=== PATIENT | female | born 1950 | race Caucasian/White ===

== ENCOUNTER → 2017-11-16 | Outpatient (CLI) | payer MEDICARE, OTHER ==
[~2017-11-16] MED LIST: ALBI30PE INJ; ALBI30PE SC; AMLO10TA2 PO; AMLO2.5T PO; ATEN25TA PO; ATEN50TA41 PO; ATOR-2 PO; ATOR40TA PO; DAPA1TAB3 PO; DAPA1TAB5 PO; FENO160T PO; FENO43CA3 PO; FENT1PAT75 TD; INSU100I28 SQ-INSULIN; INSU100V13 SC; LISI1TAB5 PO; LISI2.5T PO; OMEG1CAP2 PO; POLY17PO5 PO; TRAM50TA2 PO
[2017-11-16 12:18] LABS: MEAN CORPUSCULAR HEMOGLOBIN 27.2 pg (27.0-34.8); MEAN CORPUSCULAR HGB CONC 33.5 g/dL (32.4-35.8); MEAN CORPUSCULAR VOLUME 81.1 fL (80-100); MEAN PLATELET VOLUME 10.9 fL (7.4-10.4); PLATELET COUNT 313 x10^3/uL (130-400); RED BLOOD COUNT 4.73 x10^6/uL (3.82-5.3); RED CELL DISTRIBUTION WIDTH 13.5 % (9.6-15.2)
[2017-11-16 12:29] LABS: INTERNATIONAL NORMALIZED RATIO 1.04 (0.93-1.1); PROTHROMBIN TIME 10.7 Seconds (9.6-11.5)
[2017-11-16 12:30] LABS: ALANINE AMINOTRANSFERASE 37 U/L (12-78); ALBUMIN 3.6 g/dL (3.4-5.0); ANION GAP 9 mmol/L (5-15); CALCIUM 9.4 mg/dL (8.5-10.1); CHLORIDE 95 mmol/L (98-107); CREATININE 1.71 mg/dL (0.55-1.02)
[2017-11-16 12:32] LABS: ALKALINE PHOSPHATASE 21 U/L (45-117); BILIRUBIN,TOTAL 0.5 mg/dL (0.2-1.0); TOTAL PROTEIN 7.2 g/dL (6.4-8.2)
[2017-11-16 12:45] LABS: MICROSCOPIC NOT IND
[2017-11-16 12:53] LABS: CULTURE INDICATED? NO
[2017-11-16 12:55] LABS: BASOPHILS # (AUTO) 0.05 x10^3/uL (0-0.1); BASOPHILS % (AUTO) 0 % (0-1); EOSINOPHILS % (AUTO) 0 % (1-7); LYMPHOCYTES % (AUTO) 9 % (22-44); MD SCAN; MONOCYTES # (AUTO) 0.67 x10^3/uL (0.2-0.8); MONOCYTES % (AUTO) 4 % (2-9); NEUTROPHILS # (AUTO) 15.78 x10^3/uL (1.8-6.8); NEUTROPHILS % (AUTO) 87 % (42-75)
== END | disposition home or self-care (01) ==
LOC: STAR 10:33
PROVIDERS: ATTEND Orthopaedic Surgery Orthopaedic Surgery of the Spine
DX: Z01.818 Encounter for other preprocedural examination (principal); I10 Essential (primary) hypertension; E11.9 Type 2 diabetes mellitus without complications; M43.16 Spondylolisthesis, lumbar region; M48.061 Spinal stenosis, lumbar region without neurogenic claudication; I25.2 Old myocardial infarction; Z98.1 Arthrodesis status
CPT/HCPCS: 36415; 71046; 80053; 81003; 85025; 85610; 85730; 93005

== ENCOUNTER → 2017-11-16 | Outpatient (CLI) | payer MEDICARE, OTHER | END | disposition home or self-care (01) | LOC: CFH 08:09 → EDSTATUS 08:30 | DX: Z13.820 Encounter for screening for osteoporosis (principal); N95.9 Unspecified menopausal and perimenopausal disorder; E11.9 Type 2 diabetes mellitus without complications | CPT/HCPCS: 77080 ==

== ENCOUNTER → 2017-11-26 | Outpatient (CLI) | payer MEDICARE, OTHER | END | disposition home or self-care (01) | LOC: CVU 13:55 | PROVIDERS: ATTEND Internal Medicine | DX: I11.9 Hypertensive heart disease without heart failure (principal); I35.8 Other nonrheumatic aortic valve disorders; E11.9 Type 2 diabetes mellitus without complications; E78.5 Hyperlipidemia, unspecified; G51.0 Bell's palsy | CPT/HCPCS: 93306 ==

== ENCOUNTER 2017-12-10 07:30 | Inpatient (IN) | payer MEDICARE ==
[~2017-12-10] VITALS: Ht 154.9 cm; Wt 79.1 kg
[~2017-12-10 07:30] MED LIST changes: -ALBI30PE INJ; -ALBI30PE SC; +ALBI30PE3 INJ; +ALBI30PE3 SC; -AMLO10TA2 PO; +AMLO10TA6 PO; -AMLO2.5T PO; +AMLO2.5T3 PO; +ASPI-496 PO; +CHOL5000 PO; +FISH1CAP PO; +HYDR2TAB29 PO; +INSU100V13 INJ; +LIRA0.6P2 INJ; +METF500T17 PO
[2017-12-23] MEDS ORDERED: LACTATED RINGERS 1,000 ML IV SCH (06:06)
[2017-12-23 06:11] VITALS: BP 156/87
[2017-12-23] MEDS ORDERED: LIDOCAINE/PF 0.5% ,50ML ONE (06:52)
[2017-12-23] MEDS ORDERED: BUPIVACAINE 0.25% ONE (06:52)
[2017-12-23] MEDS ORDERED: THROMBIN 5,000 UNIT VIAL TP ONE (06:53)
[2017-12-23] MEDS ORDERED: EPINEPHRINE 1 MG/ML, 1ML ONE (06:53)
[2017-12-23] MEDS ORDERED: VANCOMYCIN 1,000 MG ONE (06:53)
[2017-12-23] MEDS ORDERED: MIDAZOLAM 1 MG/ML, 2ML ONE ×2 (07:33→12:10)
[2017-12-23] MEDS ORDERED: FENTANYL PF 100 MCG/2ML ONE ×2 (07:33→07:42)
[2017-12-23] MEDS ORDERED: REMIFENTANIL 1 MG ONE (07:45)
[2017-12-23] MEDS ORDERED: KETAMINE 50 MG/ML, 10ML ONE (07:45)
[2017-12-23] MEDS ORDERED: ONDANSETRON 2MG/ML, 2ML IVPush PRN (12:00)
[2017-12-23] MEDS ORDERED: FENTANYL PF 100 MCG/2ML IV PRN (12:00)
[2017-12-23] MEDS ORDERED: LABETALOL 5MG/ML, 20ML IV PRN (12:00)
[2017-12-23] MEDS ORDERED: OXYcodone 5 MG/5 ML ORAL.SOL UDC PO PRN (12:00)
[2017-12-23] MEDS ORDERED: MIDAZOLAM 1 MG/ML, 2ML IV PRN (12:00)
[2017-12-23] MEDS ORDERED: MEPERIDINE/PF 25MG/0.5ML IVPush PRN (12:00)
[2017-12-23] MEDS ORDERED: HYDROmorphone 2 MG/ML, 1ML ONE ×2 (12:10→15:36)
[2017-12-23] MEDS ORDERED: hydrALAzine 20 MG/ML, 1ML ONE (12:10)
[2017-12-23] MEDS: HYDROmorphone 1 MG/ML, 1ML IV PRN ×4 (12:12→12:35)
[2017-12-23] MEDS ORDERED: hydrALAzine 20 MG/ML, 1ML IV PRN (12:30)
[2017-12-23] MEDS ORDERED: DIPHENHYDRAMINE 50 MG/ML, 1ML IVPush PRN (14:00)
[2017-12-23] MEDS ORDERED: DIPHENHYDRAMINE 50 MG/ML, 1ML ONE (14:00)
[2017-12-23 14:06] VITALS: BP 143/52
[2017-12-23] MEDS: DIPHENHYDRAMINE 50 MG/ML, 1ML IVPush PRN (14:19)
[2017-12-23] MEDS ORDERED: MAGNESIUM HYDROXIDE 8%, 30ML UDC PO PRN (14:30)
[2017-12-23] MEDS ORDERED: BISACODYL 10 MG SUPP PR PRN (14:30)
[2017-12-23] MEDS ORDERED: PROMETHAZINE 25 MG/ML, 1ML IM PRN (14:30)
[2017-12-23] MEDS ORDERED: DIPHENHYDRAMINE 50 MG/ML, 1ML IM PRN (14:30)
[2017-12-23] MEDS ORDERED: HYDROmorphone 2 MG/ML, 1ML IM PRN (14:30)
[2017-12-23] MEDS ORDERED: ONDANSETRON 2MG/ML, 2ML IV PRN (14:30)
[2017-12-23] MEDS ORDERED: METOCLOPRAMIDE 5 MG/ML, 2ML ONE (15:39)
[2017-12-23] MEDS ORDERED: NEOSTIGMINE 1 MG/ML, 10ML ONE (15:39)
[2017-12-23] MEDS ORDERED: DEXAMETHASONE 4 MG/ML, 1ML ONE (15:39)
[2017-12-23] MEDS ORDERED: ROCURONIUM 10MG/ML,5ML ONE (15:39)
[2017-12-23] MEDS ORDERED: PROPOFOL 10 MG/ML, 50ML ONE (15:39)
[2017-12-23] MEDS ORDERED: GLYCOPYRROLATE 0.2MG/1ML, 5ML ONE (15:39)
[2017-12-23] MEDS ORDERED: PROPOFOL 10 MG/ML, 20ML ONE (15:39)
[2017-12-23] MEDS ORDERED: KETAMINE 10 MG/ML, 20ML ONE (15:39)
[2017-12-23] MEDS ORDERED: ONDANSETRON 2MG/ML, 2ML ONE (15:39)
[2017-12-23] MEDS ORDERED: CEFAZOLIN 1,000 MG ONE (15:39)
[2017-12-23] MEDS: CEFAZOLIN PMX 1GM/50ML 50 ML IVPB SCH ×2 (15:40→23:07)
[2017-12-23] MEDS: HYDROmorphone 1 MG/ML, 1ML IVPush PRN (15:40)
[2017-12-23] MEDS: NS + 20MEQ KCL 1,000 ML IV SCH (15:40)
[2017-12-23] MEDS ORDERED: INSULIN LISPRO 100 UNITS/ML, PEN SQ-INSULIN ONE ×2 (17:30→22:00)
[2017-12-23] MEDS: HYDROmorphone 2MG TABLET PO PRN (17:59)
[2017-12-23 19:05] VITALS: BP 138/64
[2017-12-23] MEDS ORDERED: HYDROCHLOROTHIAZIDE 12.5 MG CAPSULE PO SCH (21:00)
[2017-12-23] MEDS ORDERED: LISINOPRIL 20 MG TABLET PO SCH (21:00)
[2017-12-23 23:00] VITALS: BP 128/51
[2017-12-23] MEDS: FENOFIBRATE 145 MG TABLET PO SCH (23:05)
[2017-12-23] MEDS: ATENOLOL 50 MG TABLET PO SCH (23:05)
[2017-12-23] MEDS: ATORVASTATIN 80 MG TABLET PO SCH (23:05)
[2017-12-24] MEDS: NS + 20MEQ KCL 1,000 ML IV SCH ×3 (00:30→20:30)
[2017-12-24] MEDS: DIPHENHYDRAMINE 50 MG CAPSULE PO PRN ×5 (02:04→17:06)
[2017-12-24] MEDS: HYDROmorphone 1 MG/ML, 1ML IVPush PRN ×2 (02:06→07:22)
[2017-12-24 02:12] VITALS: BP 131/67
[2017-12-24] MEDS: HYDROmorphone 2MG TABLET PO PRN ×5 (04:22→22:05)
[2017-12-24 04:43] LABS: BASOPHILS # (AUTO) 0.01 x10^3/uL (0-0.1); BASOPHILS % (AUTO) 0 % (0-1); EOSINOPHILS # (AUTO) 0.06 x10^3/uL (0-0.4); EOSINOPHILS % (AUTO) 0 % (1-7); LYMPHOCYTES # (AUTO) 2.24 x10^3/uL (1-3.4); LYMPHOCYTES % (AUTO) 16 % (22-44); MD NO; MEAN CORPUSCULAR HEMOGLOBIN 27.9 pg (27.0-34.8); MEAN CORPUSCULAR HGB CONC 33.8 g/dL (32.4-35.8); MEAN CORPUSCULAR VOLUME 82.7 fL (80-100); MEAN PLATELET VOLUME 9.4 fL (7.4-10.4); MONOCYTES # (AUTO) 1.29 x10^3/uL (0.2-0.8); MONOCYTES % (AUTO) 9 % (2-9); NEUTROPHILS # (AUTO) 10.13 x10^3/uL (1.8-6.8); NEUTROPHILS % (AUTO) 74 % (42-75); PLATELET COUNT 386 x10^3/uL (130-400); RED BLOOD COUNT 3.93 x10^6/uL (3.82-5.3); RED CELL DISTRIBUTION WIDTH 15.3 % (9.6-15.2)
[2017-12-24 04:54] LABS: ANION GAP 10 mmol/L (5-15); CALCIUM 8.2 mg/dL (8.5-10.1); CHLORIDE 100 mmol/L (98-107)
[2017-12-24 04:55] LABS: CREATININE 0.81 mg/dL (0.55-1.02)
[2017-12-24] MEDS ORDERED: ATENOLOL 50 MG TABLET PO SCH (06:00)
[2017-12-24 06:55] VITALS: BP 122/65
[2017-12-24] MEDS: SENNA/DOCUSATE TABLET PO SCH (08:22)
[2017-12-24] MEDS ORDERED: AMLODIPINE 10 MG TAB PO SCH (09:00)
[2017-12-24] MEDS: HYDROmorphone 2 MG/ML, 1ML IVPush PRN ×2 (11:48→15:13)
[2017-12-24] MEDS: INSULIN LISPRO 100 UNITS/ML, PEN SQ-INSULIN PRN ×2 (12:14→17:31)
[2017-12-24 13:25] VITALS: BP 124/48
[2017-12-24] MEDS ORDERED: INSULIN LISPRO 100 UNITS/ML, PEN SQ-INSULIN ONE (17:56)
[2017-12-24 20:51] VITALS: BP 143/74
[2017-12-24] MEDS: FENOFIBRATE 145 MG TABLET PO SCH (22:04)
[2017-12-24] MEDS: ATORVASTATIN 80 MG TABLET PO SCH (22:05)
[2017-12-24] MEDS: ATENOLOL 50 MG TABLET PO SCH (22:06)
[2017-12-24] MEDS: DIPHENHYDRAMINE 50 MG/ML, 1ML IVPush PRN (22:06)
[2017-12-25 00:20] VITALS: BP 157/55
[2017-12-25] MEDS: HYDROmorphone 2 MG/ML, 1ML IVPush PRN ×5 (01:30→21:42)
[2017-12-25] MEDS: DIPHENHYDRAMINE 50 MG/ML, 1ML IVPush PRN ×2 (03:56→22:24)
[2017-12-25 05:09] LABS: BASOPHILS # (AUTO) 0.06 x10^3/uL (0-0.1); BASOPHILS % (AUTO) 1 % (0-1); EOSINOPHILS # (AUTO) 0.03 x10^3/uL (0-0.4); EOSINOPHILS % (AUTO) 0 % (1-7); LYMPHOCYTES # (AUTO) 1.36 x10^3/uL (1-3.4); LYMPHOCYTES % (AUTO) 13 % (22-44); MD NO; MEAN CORPUSCULAR HEMOGLOBIN 27.6 pg (27.0-34.8); MEAN CORPUSCULAR HGB CONC 33.5 g/dL (32.4-35.8); MEAN CORPUSCULAR VOLUME 82.4 fL (80-100); MEAN PLATELET VOLUME 10.1 fL (7.4-10.4); MONOCYTES # (AUTO) 0.81 x10^3/uL (0.2-0.8); MONOCYTES % (AUTO) 8 % (2-9); NEUTROPHILS # (AUTO) 8.24 x10^3/uL (1.8-6.8); NEUTROPHILS % (AUTO) 79 % (42-75); PLATELET COUNT 322 x10^3/uL (130-400); RED BLOOD COUNT 3.76 x10^6/uL (3.82-5.3); RED CELL DISTRIBUTION WIDTH 14.9 % (9.6-15.2)
[2017-12-25 05:30] LABS: ANION GAP 12 mmol/L (5-15); CALCIUM 8.3 mg/dL (8.5-10.1); CHLORIDE 100 mmol/L (98-107)
[2017-12-25 05:33] LABS: CREATININE 0.71 mg/dL (0.55-1.02)
[2017-12-25] MEDS: NS + 20MEQ KCL 1,000 ML IV SCH ×2 (06:30→15:50)
[2017-12-25 07:08] VITALS: BP 169/74
[2017-12-25] MEDS: SENNA/DOCUSATE TABLET PO SCH (08:15)
[2017-12-25] MEDS: HYDROmorphone 2MG TABLET PO PRN ×4 (08:15→22:24)
[2017-12-25] MEDS: DIPHENHYDRAMINE 50 MG CAPSULE PO PRN ×3 (08:15→17:26)
[2017-12-25] MEDS ORDERED: INSULIN LISPRO 100 UNITS/ML, PEN SQ-INSULIN ONE ×3 (08:30→17:30)
[2017-12-25 13:08] VITALS: BP 138/51
[2017-12-25 13:15] VITALS: BP 138/51
[2017-12-25] MEDS ORDERED: METHYLNALTREXONE 12 MG/0.6 ML SQ ONE (17:00)
[2017-12-25] MEDS: POLYETHYLENE GLYCOL 17 GM PACKET PO SCH (17:14)
[2017-12-25 19:27] VITALS: BP 146/72
[2017-12-25] MEDS: ATORVASTATIN 80 MG TABLET PO SCH (20:10)
[2017-12-25] MEDS: FENOFIBRATE 145 MG TABLET PO SCH (20:10)
[2017-12-25] MEDS: ATENOLOL 50 MG TABLET PO SCH (20:10)
[2017-12-26] MEDS ORDERED: SENN-31 PO (01:32)
[2017-12-26] MEDS ORDERED: BISA10SU54 PR (01:34)
[2017-12-26] MEDS ORDERED: DIPH25CA61 PO (01:38)
[2017-12-26] MEDS: NS + 20MEQ KCL 1,000 ML IV SCH ×2 (02:30→08:43)
[2017-12-26 02:59] VITALS: BP 156/77
[2017-12-26] MEDS: DIPHENHYDRAMINE 50 MG CAPSULE PO PRN ×2 (03:25→12:25)
[2017-12-26] MEDS: HYDROmorphone 2MG TABLET PO PRN ×3 (03:25→12:18)
[2017-12-26 07:12] VITALS: BP 153/84
[2017-12-26] MEDS: INSULIN LISPRO 100 UNITS/ML, PEN SQ-INSULIN PRN ×2 (08:39→12:25)
[2017-12-26] MEDS: POLYETHYLENE GLYCOL 17 GM PACKET PO SCH (08:41)
[2017-12-26] MEDS: SENNA/DOCUSATE TABLET PO SCH (08:41)
[2017-12-26] MEDS ORDERED: HYDR2TAB29 PO (13:34)
[2017-12-26 14:05] VITALS: BP 139/79
== END 2017-12-26 16:20 | DRG 460 ==
LOC: ORIP 12-23 05:10 → 4NOR 12-23 13:09
PROVIDERS: ADMIT Orthopaedic Surgery Orthopaedic Surgery of the Spine; ATTEND Orthopaedic Surgery Orthopaedic Surgery of the Spine
PROC: 3E0U0GB Introduction of Recombinant Bone Morphogenetic Protein into Joints, Open Approach (ICD-10-PCS; 2017-12-23)
PROC: 4A11X4G Monitoring of Peripheral Nervous Electrical Activity, Intraoperative, External Approach (ICD-10-PCS; 2017-12-23)
PROC: 0SG1071 Fusion of 2 or more Lumbar Vertebral Joints with Autologous Tissue Substitute, Posterior Approach, Posterior Column, Open Approach (ICD-10-PCS; principal; 2017-12-23 07:30)
DX: M48.061 Spinal stenosis, lumbar region without neurogenic claudication (principal); D62 Acute posthemorrhagic anemia; E78.5 Hyperlipidemia, unspecified; M43.16 Spondylolisthesis, lumbar region; E11.319 Type 2 diabetes mellitus with unspecified diabetic retinopathy without macular edema; G89.29 Other chronic pain; I11.9 Hypertensive heart disease without heart failure; L29.9 Pruritus, unspecified; M43.17 Spondylolisthesis, lumbosacral region; E11.9 Type 2 diabetes mellitus without complications; Z90.49 Acquired absence of other specified parts of digestive tract; Z98.1 Arthrodesis status; Z79.899 Other long term (current) drug therapy; Z79.84 Long term (current) use of oral hypoglycemic drugs; Z88.5 Allergy status to narcotic agent; Z79.4 Long term (current) use of insulin; Z79.82 Long term (current) use of aspirin; Z80.6 Family history of leukemia; Z82.49 Family history of ischemic heart disease and other diseases of the circulatory system; Z83.3 Family history of diabetes mellitus; Z90.710 Acquired absence of both cervix and uterus; Z91.048 Other nonmedicinal substance allergy status
CPT/HCPCS: 36415; 72100; 80048; 82962; 85025; 86850; 86900; C1713; G0378; J0171; J0690; J1100; J1170; J2001; J2250; J2405; J2704; J2710; J3010; J3370; J3480; J3490; C1762; J0360; J1200; J1815; J2765; J7120

== ENCOUNTER 2018-10-20 08:47 | Outpatient (CLI) | payer MEDICARE | END 2018-10-20 23:59 | disposition home or self-care (01) | LOC: CFH 08:47 | PROVIDERS: ATTEND Internal Medicine Cardiovascular Disease | DX: Z01.810 Encounter for preprocedural cardiovascular examination (principal); R94.31 Abnormal electrocardiogram [ECG] [EKG] | CPT/HCPCS: 78452; 93017; A9502; J2785 ==

== ENCOUNTER → 2020-10-24 | Outpatient (CLI) | payer MEDICARE ==
[~2020-10-24] MED LIST changes: +AMLO-211 PO; +AMLO10TA4 PO; -AMLO10TA6 PO; -AMLO2.5T3 PO; +AMLO2.5T5 PO; +ASPI81TA45 PO; +BISA10SU54 PR; +CLOP75TA PO; +DAPA10TA PO; +DIPH25CA61 PO; -FENO43CA3 PO; +FENO43CA6 PO; +INSU100C5 SQ-INSULIN; +ISOS30TA8 PO; +LISI1TAB39 PO; -LISI1TAB5 PO; +LISI5TAB7 PO; +SENN-31 PO
== END | disposition home or self-care (01) ==
LOC: CFH 08:54
PROVIDERS: ATTEND Student in an Organized Health Care Education/Training Program
DX: J90 Pleural effusion, not elsewhere classified (principal); R06.02 Shortness of breath; M43.26 Fusion of spine, lumbar region; M47.814 Spondylosis without myelopathy or radiculopathy, thoracic region
CPT/HCPCS: 71046